=== PATIENT | female | born 1965 | race Caucasian/White ===

== ENCOUNTER 2022-03-20 08:59 | Emergency (ER) | payer OTHER ==
[~2022-03-20] VITALS: Ht 165.1 cm; Wt 63.5 kg
[2022-03-20] MEDS ORDERED: ESCI10 (09:16)
[2022-03-20] MEDS ORDERED: PROP10 (09:16)
[2022-03-20 09:50] LABS: Influenza B, PCR NEGATIVE (NEGATIVE); Resp Syncytial Virus, PCR NEGATIVE (NEGATIVE); SARS-Cov-2 (COVID-19) PCR, MMC NEGATIVE (NEGATIVE)
[2022-03-20 09:51] LABS: Influenza A, PCR POSITIVE (NEGATIVE)
== END 2022-03-20 13:24 | disposition home or self-care (01) ==
LOC: ER 08:59
PROVIDERS: Emergency Medicine
DX: J10.1 Influenza due to other identified influenza virus with other respiratory manifestations (principal); I10 Essential (primary) hypertension; J45.909 Unspecified asthma, uncomplicated; Z20.822 Contact with and (suspected) exposure to COVID-19; Z88.5 Allergy status to narcotic agent; Z87.891 Personal history of nicotine dependence
CPT/HCPCS: 0241U; 71045; 94640; 94664; A9270

== ENCOUNTER 2022-03-28 14:40 | Inpatient (IN) | payer OTHER ==
[~2022-03-28] VITALS: Ht 165.1 cm; Wt 60.3 kg
[~2022-03-28 14:40] MED LIST: ESCI10; PROP10
[2022-03-28 15:58] LABS: BASOPHILS ABSOLUTE AUTO 0.01 K/mm3 (0.00-0.23); BASOPHILS PERCENT AUTO 0 % (0-2); EOSINOPHILS ABSOLUTE AUTO 0.14 K/mm3 (0.00-0.68); EOSINOPHILS PERCENT AUTO 1 % (0-6); Hematocrit 30.1 % (33.0-51.0); Hemoglobin 10.1 g/dL (11.5-16.0); IMMATURE GRAN ABSOLUTE AUTO 0.04 K/mm3 (0.00-0.10); IMMATURE GRAN PERCENT AUTO 0 % (0-1); LYMPHOCYTES ABSOLUTE AUTO 1.74 K/mm3 (0.84-5.20); LYMPHOCYTES PERCENT AUTO 18 % (21-46); MONOCYTES ABSOLUTE AUTO 1.07 K/mm3 (0.16-1.47); MONOCYTES PERCENT AUTO 11 % (4-13); Mean Corpuscular HGB 26.7 pg (26.0-34.0); Mean Corpuscular HGB Conc 33.6 g/dL (31.5-36.5); Mean Corpuscular Volume 80 fL (80-100); Mean Platelet Volume 10.6 fL (9.1-12.4); NEUTROPHILS ABSOLUTE AUTO 6.97 K/mm3 (1.96-9.15); NEUTROPHILS PERCENT AUTO 70 % (41-73); Platelet Count 289 K/mm3 (150-400); RDW Coefficient Variation 19.6 % (11.7-14.2); Red Blood Cell Count 3.78 M/mm3 (3.80-5.20); White Blood Cell Count 9.97 K/mm3 (4.00-11.30)
[2022-03-28 16:22] LABS: Albumin, Blood 2.6 g/dL (3.4-5.0); Albumin/Globulin Ratio 0.5 (0.8-1.8); Bilirubin, Total 1.1 mg/dL (0.1-1.0); Bun/Creatinine Ratio 35.7 (12.0-20.0); Calcium, Blood 8.3 mg/dL (8.5-10.1); Creatinine, Blood 0.34 mg/dL (0.40-1.00); Globulin, Blood 5.4 g/dL (2.2-4.0); Potassium, Blood 4.8 mmol/L (3.5-5.5)
[2022-03-28 16:26] LABS: Influenza A, PCR NEGATIVE (NEGATIVE); Influenza B, PCR NEGATIVE (NEGATIVE); Resp Syncytial Virus, PCR NEGATIVE (NEGATIVE); SARS-Cov-2 (COVID-19) PCR, MMC NEGATIVE (NEGATIVE)
[2022-03-28 18:23] LABS: Source, Urine Clean Catch
[2022-03-28 18:29] LABS: Appearance, Urine Clear (Clear); Bilirubin, Urine Neg (Neg); Blood, Urine Neg (Neg); Color, Urine Yellow (P-Yellow); Glucose Qualitative, Urine Neg (Neg); Ketones, Urine Neg (Neg); Leukocyte Esterase, Urine Neg (Neg); Nitrite, Urine Neg (Neg); Protein, Urine Neg (Neg); Specific Gravity, Urine 1.005 (1.003-1.022); Urobilinogen, Urine 2+ (Normal)
[2022-03-29 04:09] LABS: Hematocrit 25.8 % (33.0-51.0); Hemoglobin 8.5 g/dL (11.5-16.0)
[2022-03-29 06:21] LABS: BASOPHILS ABSOLUTE AUTO 0.01 K/mm3 (0.00-0.23); BASOPHILS PERCENT AUTO 0 % (0-2); EOSINOPHILS PERCENT AUTO 3 % (0-6); Hematocrit 27.1 % (33.0-51.0); Hemoglobin 8.9 g/dL (11.5-16.0); IMMATURE GRAN ABSOLUTE AUTO 0.03 K/mm3 (0.00-0.10); IMMATURE GRAN PERCENT AUTO 0 % (0-1); LYMPHOCYTES ABSOLUTE AUTO 2.31 K/mm3 (0.84-5.20); LYMPHOCYTES PERCENT AUTO 29 % (21-46); MONOCYTES ABSOLUTE AUTO 1.12 K/mm3 (0.16-1.47); MONOCYTES PERCENT AUTO 14 % (4-13); Mean Corpuscular HGB 26.7 pg (26.0-34.0); Mean Corpuscular HGB Conc 32.8 g/dL (31.5-36.5); Mean Corpuscular Volume 81 fL (80-100); Mean Platelet Volume 11.3 fL (9.1-12.4); NEUTROPHILS ABSOLUTE AUTO 4.27 K/mm3 (1.96-9.15); NEUTROPHILS PERCENT AUTO 54 % (41-73); Platelet Count 258 K/mm3 (150-400); RDW Coefficient Variation 18.9 % (11.7-14.2); RDW Standard Deviation 56.2 fL (35.1-46.3); Red Blood Cell Count 3.33 M/mm3 (3.80-5.20); White Blood Cell Count 7.94 K/mm3 (4.00-11.30)
[2022-03-29 07:47] LABS: Albumin, Blood 2.2 g/dL (3.4-5.0); Albumin/Globulin Ratio 0.5 (0.8-1.8); Calcium, Blood 8.2 mg/dL (8.5-10.1); Creatinine, Blood 0.35 mg/dL (0.40-1.00); Globulin, Blood 4.7 g/dL (2.2-4.0); Potassium, Blood 3.7 mmol/L (3.5-5.5); Total Protein, Blood 6.9 g/dL (6.4-8.2)
[2022-03-29 09:22] LABS: Hematocrit 26.9 % (33.0-51.0); Hemoglobin 9.1 g/dL (11.5-16.0)
--- NOTE | 2022-03-29 11:07 | NUR ---
Echocardiogram completed.
[2022-03-29] MEDS ORDERED: ESCI10 PO (14:48)
[2022-03-29] MEDS ORDERED: PROP10 (14:49)
[2022-03-29] MEDS ORDERED: ALPR.25 (14:49)
[2022-03-29 14:52] LABS: Hematocrit 29.5 % (33.0-51.0); Hemoglobin 9.6 g/dL (11.5-16.0)
--- NOTE | 2022-03-29 16:59 | NUR ---
THIS [employer] HAS REVEIEWED ALL NOTES AND ASSESSMENTS BY KASHIF LAUGHLIN AND AGREES.
--- NOTE | 2022-03-29 17:26 | NUR ---
"Spiritual Care | Pt. Request Pt. is sitting up on the side of her bed preparing to eat when she welcomes my visit. A friend is present. Pt. is pleasant but unsettled that she doesn't have a place to live. She displayed evidence that has been staying at [facility]. Facilitated a life review and established rapport. Prayed for Pt. and friend. Both verbalized gratitude for the spiritual care visit."
--- NOTE | 2022-03-29 17:35 | NUR ---
SHIFT SUMMARY: PT ALERT AND ORIENTED X4. PT ARRIVED TO THE MEDICAL FLOOR VIA ER WHEELCHAIR AT 1425. PATIENT VERY PLEASANT AND COOPERATIVE WITH ALL CARE. PT IS INDEPENDENT IN ROOM BUT NEEDS ASSISTANCE WALKING WITH IV I GOT IN REPORT THAT SHE PULLED ONE OUT WALKING TO BATHROOM. PT IS IN A 7/[address] HOLM PRESCRIBED OXYCODONE AND WILL PROVIDE TO PT IF NEEDED. PT HAS BEEN CHANGED FROM A CLEAR LIQUID DIET TO REGULAR WHICH CHEERED HER UP SHE ARRIVED TO MEDICAL FLOOR "STAR[facility]ING." PT STATES SHE IS HAVING BLOODY STOOLS. PT RECEIVED 1 UNIT OF BLOOD IN ED. PT CURRENTLY RESTING IN BED W/O COMPLAINTS. CALL LIGHT IN REACH. WILL CONTINUE TO MONITOR.
--- NOTE | 2022-03-30 05:57 | NUR ---
PATIENT WAS RESTLESS AND CONSISTENTLY MILDLY ANXIOUS THROUGHOUT MAJORITY OF SHIFT. PATIENT REPORTED THAT HER NOSE AND EYES ITCHED DUE TO ALLERGIES. ORDERED CLARITIN 10 MG DAILY PRN AND ADMINISTERED WHICH SEEMED TO ALLEVIATE ITCHING. PATIENT WAS UP THROUGH MOST OF NIGHT AND INTERMITTENTLY REPORTED PAIN THAT WAS WELL MANAGED ON CURRENT MEDICATION REGIMEN. OTHERWISE UNREMARKABLE. CALL LIGHT LEFT WITHIN REACH.
[2022-03-30 06:01] LABS: Hematocrit 27.7 % (33.0-51.0); Hemoglobin 9.2 g/dL (11.5-16.0); Mean Corpuscular HGB 27.1 pg (26.0-34.0); Mean Corpuscular HGB Conc 33.2 g/dL (31.5-36.5); Mean Corpuscular Volume 82 fL (80-100); Mean Platelet Volume 10.8 fL (9.1-12.4); Platelet Count 312 K/mm3 (150-400); RDW Coefficient Variation 19.2 % (11.7-14.2); RDW Standard Deviation 57.4 fL (35.1-46.3); Red Blood Cell Count 3.39 M/mm3 (3.80-5.20); White Blood Cell Count 6.49 K/mm3 (4.00-11.30)
[2022-03-30 06:25] LABS: Bun/Creatinine Ratio 30.8 (12.0-20.0); Calcium, Blood 8.6 mg/dL (8.5-10.1); Creatinine, Blood 0.36 mg/dL (0.40-1.00); Potassium, Blood 3.9 mmol/L (3.5-5.5)
[2022-03-30] MEDS ORDERED: HYDCHL25 PO (12:53)
--- NOTE | 2022-03-30 17:23 | NUR ---
SHIFT SUMMARY PT REPORTING ABDOMENAL PAIN THAT OXYCODONE DID HELP. FRIEND AT BEDSIDE. PT APPEARS TO HAVE ANXIETY AT TIMES. INDEPENDENT IN ROOM. NO BLACK STOOL OBSERVED TODAY. DENIES NAUSEA.
--- NOTE | 2022-03-31 05:11 | NUR ---
Shift Summary Early in the shift pt had an episode of coughing and wheezing, called RT who did a breathing treatment. Pt then rcvd 1st dose of solu-medrol, after which there was no more acute breathing episodes. Pt C/O abdominal pain once early in the shift, was given PRN oxy 5mg per emar. Slept well t/o most of the night, up a few times requesting snacks. Somewhat hypertensive this AM, 149/73 at 0452. AOx4, pleasant and cooperative with care.
[2022-03-31 06:13] LABS: BASOPHILS ABSOLUTE AUTO 0.01 K/mm3 (0.00-0.23); BASOPHILS PERCENT AUTO 0 % (0-2); EOSINOPHILS PERCENT AUTO 0 % (0-6); Hematocrit 27.1 % (33.0-51.0); Hemoglobin 9.1 g/dL (11.5-16.0); IMMATURE GRAN ABSOLUTE AUTO 0.04 K/mm3 (0.00-0.10); IMMATURE GRAN PERCENT AUTO 0 % (0-1); LYMPHOCYTES ABSOLUTE AUTO 1.53 K/mm3 (0.84-5.20); LYMPHOCYTES PERCENT AUTO 16 % (21-46); MONOCYTES ABSOLUTE AUTO 0.43 K/mm3 (0.16-1.47); MONOCYTES PERCENT AUTO 5 % (4-13); Mean Corpuscular HGB 27.1 pg (26.0-34.0); Mean Corpuscular HGB Conc 33.6 g/dL (31.5-36.5); Mean Corpuscular Volume 81 fL (80-100); Mean Platelet Volume 10.6 fL (9.1-12.4); NEUTROPHILS ABSOLUTE AUTO 7.59 K/mm3 (1.96-9.15); NEUTROPHILS PERCENT AUTO 79 % (41-73); Platelet Count 380 K/mm3 (150-400); RDW Coefficient Variation 19.1 % (11.7-14.2); RDW Standard Deviation 55.7 fL (35.1-46.3); Red Blood Cell Count 3.36 M/mm3 (3.80-5.20)
[2022-03-31 06:36] LABS: Albumin, Blood 2.4 g/dL (3.4-5.0); Albumin/Globulin Ratio 0.5 (0.8-1.8); Bilirubin, Total 0.6 mg/dL (0.1-1.0); Bun/Creatinine Ratio 49.3 (12.0-20.0); Calcium, Blood 8.6 mg/dL (8.5-10.1); Creatinine, Blood 0.3 mg/dL (0.40-1.00); Potassium, Blood 3.9 mmol/L (3.5-5.5); Total Protein, Blood 7.4 g/dL (6.4-8.2)
--- NOTE | 2022-03-31 08:00 | NUR ---
pt sitting on the side of the bed a/ox3, cooperative with care, follows commands well, reports a h/a and abd discomfort, will medicate as ordered, lungs are course wheezing t/o, resp even and unlabored, with a harsh productive cough of yellow sputum, she reports it did have blood in it but doesn't now, currently on r/a, hrr, tele in place running sr to st per monitor, see strip, no edema noted, ppp+2, cap refill < 3sec, vs stable, afebrile, iv site is clear and patent to sandy, btx4, abd flat soft nontender, voids without diff, but does have a pullup on, she ambulates to the bathroom indep, skin c/w/d flory cordon, call light in reach.
--- NOTE | 2022-03-31 18:28 | NUR ---
pt up ad carmen in room, had a bed bath and linen change, asked for pain meds once, no acute changes this shift, call light in reach.
--- NOTE | 2022-04-01 04:27 | NUR ---
SHIFT SUMMARY A/OX4, IND IN ROOM. C/O HEADACHE, MEDICATED PER EMAR. VSS, NO ACUTE CHANGES AT THIS TIME. BED IN LOWEST POSITION WITH CALL LIGHT IN REACH. WILL CONTINUE TO MONITOR AND REPORT TO ONCOMING RN.
--- NOTE | 2022-04-01 08:00 | NUR ---
pt laying in bed recieving a breathing tx, a/ox3, pleasant and cooperative with care, follows commands well, lungs have exp wheezing t/o a bit course, not coughing as much as yesterday, on r/a, hrr, no edema noted, hrr, iv to rac leaking when flushed, will change, btx4, abd flat soft nontender, uses pullups indep in room, voids without diff, skin c/w/d, flory cordon, call light in reach.
--- NOTE | 2022-04-01 17:44 | NUR ---
SUMMARY PT RESTING QUIETLY IN BED, WAKES EASILY, FREQUENTLY REQUESTS SNACKS, INDEP IN THE ROOM, MED PER EMAR FOR PAIN, DENIES ANY NAUSEA, VSS, WILL CONT TO MONITOR
--- NOTE | 2022-04-02 07:16 | NUR ---
SHIFT SUMMARY PATIENT ALERT AND ORIENTED. MEDICATED PER EMAR FOR PAIN. HAD NO COMPLAINTS OF SHORTNESS OF BREATH. NO ACUTE ISSUES NOTED OVERNIGHT. CALL LIGHT WITHIN REACH. REPORT GIVEN TO ONCOMING RN.
--- NOTE | 2022-04-02 16:22 | NUR ---
SHIFT SUMMARY PATIENT IS ALERT AND ORIENTED. PATIENT HAS HAD NO ACUTE EVENTS THIS SHIFT. VITAL SIGNS REVIEWED. PATIENT HAS HAD NO COMPLAINTS OF NAUSEA, SOB OR VOMITTING THIS SHIFT. PATIENT HAS BEEN MEDICATED FOR PAIN ONCE THIS SHIFT. MEDICATED PER EMAR. BED IN LOCKED AND LOWEST POSITION. CALL LIGHT IN PLACE. WILL MONITOR UNTIL SHIFT CHANGE.
--- NOTE | 2022-04-03 04:31 | NUR ---
SHIFT SUMMARY; PT WITH NO ACUTE CHANGES OVERNIGHT. PT DID REPORT 8/10 PAIN IN RELATION TO A HEADACHE BUT THAT HAS SINCE RESOLVED. PT RESTED IN BED THROUGHOUT THE NIGHT WITH NO OTHER COMPLAINTS. PT DENIES ANY SOB OR CHEST PAIN/PRESSURE. CURRENTLY THE PT IS RESTING IN BED WITH TH BED IN THE LOWEST POSITION AND THE CALL LIGHT AT BEDSIDE.
[2022-04-03] MEDS ORDERED: Acetaminophen650 M1 PO (11:46)
[2022-04-03] MEDS ORDERED: PROAIR DIGIHAL90 MCG INH (11:50)
[2022-04-03] MEDS ORDERED: PANT20 PO (11:51)
[2022-04-03] MEDS ORDERED: VISBIOME 112.51 EACH PO (11:51)
[2022-04-03] MEDS ORDERED: PRED20 PO (11:51)
[2022-04-03] MEDS ORDERED: GUAI600T33 PO (11:52)
[2022-04-03] MEDS ORDERED: DOXY100 PO (11:52)
[2022-04-03] MEDS ORDERED: ALUM-MAG HYDRO360 M1 PO (11:53)
--- NOTE | 2022-04-03 12:11 | NUR ---
DISCHARGE SUMMARY PATIENT IS ALERT AND ORIENTED. PATIENT IS BEING DISCHARGED BACK TO [facility]. PATIENT HAS RIDE SET UP AND IS WHEELED DOWN BY DOMINICK CHAO. PATIENTS MEDICATIONS ARE BEING FA[facility]ED TO [facility]. PATIENT HAS HAD NO ACUTE EVENTS. VITAL SIGNS REVIEWED. DISCHARGE INSTRUCTIONS READ TO PATIENT.
== END 2022-04-03 12:02 | disposition home or self-care (01) | DRG 194 ==
LOC: ER 14:40 → ERHOLD 14:41 → MEDS 14:41 → ERHOLD 14:41 → MEDS 03-29 14:29
PROVIDERS: Internal Medicine; Student in an Organized Health Care Education/Training Program; ADMIT Internal Medicine
DX: J18.9 Pneumonia, unspecified organism (principal); J44.0 Chronic obstructive pulmonary disease with (acute) lower respiratory infection; K92.2 Gastrointestinal hemorrhage, unspecified; J44.1 Chronic obstructive pulmonary disease with (acute) exacerbation; N28.0 Ischemia and infarction of kidney; R04.2 Hemoptysis; J45.901 Unspecified asthma with (acute) exacerbation; R94.5 Abnormal results of liver function studies; E86.0 Dehydration; I95.9 Hypotension, unspecified; R16.0 Hepatomegaly, not elsewhere classified; D63.8 Anemia in other chronic diseases classified elsewhere; Z20.822 Contact with and (suspected) exposure to COVID-19; Z59.811 Housing instability, housed, with risk of homelessness; Z88.8 Allergy status to other drugs, medicaments and biological substances; Z87.09 Personal history of other diseases of the respiratory system; Z79.899 Other long term (current) drug therapy; Z88.5 Allergy status to narcotic agent; Z87.891 Personal history of nicotine dependence
CPT/HCPCS: 0241U; 36415; 71046; 71260; 74177; 80048; 80053; 81003; 83605; 83690; 83880; 84145; 84484; 85014; 85018; 85025; 85027; 85379; 86850; 86870; 86900; 86901; 87040; 87070; 87205; 93005; 93010; 93306; 94640; 94664; 94760; 96361; 96365-59; 96366-59; 96367-59; 96375-59; 96376-59; 99285-25; A9270; C9113; G0378; J0456; J0696; J2405; J2930; J3010; J7030; J7050; J7512; Q9967